=== PATIENT | female | born 1965 | race Caucasian/White ===

== ENCOUNTER → 2022-06-16 | Outpatient (CLI) | payer MEDICARE, SELFPAY ==
[2022-06-16 07:45] LABS: International Normalized Ratio 1.1; Prothrombin Time (Protime)PT. 13.4 SECONDS (11.7-14.9)
== END | disposition home or self-care (01) ==
PROVIDERS: PCP Family Medicine; Visit Provider Orthopaedic Surgery
DX: Z79.899 Other long term (current) drug therapy (principal); Z79.01 Long term (current) use of anticoagulants
CPT/HCPCS: 36415; 85610

== ENCOUNTER → 2022-12-07 | Outpatient (CLI) | payer MEDICARE, SELFPAY ==
[2022-12-10 09:29] LABS: Calprotectin, Stool 81 ug/g (0-120)
== END | disposition home or self-care (01) ==
LOC: LABSPEC 12:37
PROVIDERS: PCP Family Medicine; Referring Provider Internal Medicine; Visit Provider Internal Medicine
DX: K62.5 Hemorrhage of anus and rectum (principal); A04.72 Enterocolitis due to Clostridium difficile, not specified as recurrent; A09 Infectious gastroenteritis and colitis, unspecified
CPT/HCPCS: 36415; 83630; 83993; 87493

== ENCOUNTER → 2023-01-19 | Outpatient (CLI) | payer MEDICARE, SELFPAY ==
--- NOTE | 2023-01-19 12:06 | US_ITS ---
STUDY: RENAL ULTRASOUND - COMPLETE REASON FOR EXAM: Female, 57 years old. UTI TECHNIQUE: Ultrasound evaluation of the kidneys was performed with real-time and static pham-scale imaging. COMPARISON: None. FINDINGS: RIGHT KIDNEY: Normal location of the right kidney, which is normal in size. The right kidney measures 9.1 cm. . There is a normal cortex of the right kidney. There is no right renal mass or cyst. There are no right renal calculi. There is no right hydronephrosis. DISTAL RIGHT URETER: There is non-visualization of the distal right ureter. There is no demonstrated right ureterovesical junction calculus. There is a visualized right ureteral jet. LEFT KIDNEY: Normal location of the left kidney, which is normal in size. The left kidney measures 10.5 cm. . There is a normal cortex of the left kidney. There is no left renal mass or cyst. There are no left renal calculi. There is no left hydronephrosis. DISTAL LEFT URETER: There is non-visualization of the distal left ureter. There is no demonstrated left ureterovesical junction calculus. There is a visualized left ureteral jet. AORTA: There is obscuration of the abdominal aorta by overlying bowel gas I.V.C.: It is not visualized. There is too much overlying bowel gas. BLADDER: The distended urinary bladder has a volume in cc of 204. PVR: 58. There is a normal wall thickness of the distended urinary bladder. There is no demonstrated mass within the urinary bladder. There are no demonstrated bladder calculi. US/Kidney and Bladder IMPRESSION: No acute findings of the ultrasound of the kidneys and urinary bladder. Electronically Signed: Kevin Archibald MD at 21:53 EDT ,
[2023-01-26 20:08] LABS: Calprotectin, Stool 43 ug/g (0-120)
== END | disposition home or self-care (01) ==
PROVIDERS: Internal Medicine Gastroenterology; PCP Family Medicine; Referring Provider Urology; Visit Provider Urology
DX: N39.0 Urinary tract infection, site not specified (principal); K58.9 Irritable bowel syndrome, unspecified; A49.8 Other bacterial infections of unspecified site
CPT/HCPCS: 76770; 83630; 83993; 87493

== ENCOUNTER 2023-01-29 12:40 | Outpatient (CLI) | payer MEDICARE, SELFPAY ==
--- NOTE | 2023-01-29 13:23 | NURSING ---
awaiting med from pharmacy
[2023-01-29 13:36] VITALS: BP 106/61; PULSE 64; RESP 18; TEMP 36.9; O2SAT 97
[2023-01-29] MEDS: 0.9% NaCl Peripheral Flush Adult/Peds IV (13:51)
[2023-01-29 15:13] VITALS: BP 107/57; PULSE 62; RESP 18; TEMP 36.7; O2SAT 97
== END 2023-01-29 15:18 | disposition home or self-care (01) ==
LOC: MS3OUT 12:42 → MS3 13:05
PROVIDERS: PCP Family Medicine; Referring Provider Internal Medicine Gastroenterology; Visit Provider Internal Medicine Gastroenterology
DX: A49.8 Other bacterial infections of unspecified site (principal)
CPT/HCPCS: 96365; J7040; J7050; A4216; J0565

== ENCOUNTER → 2023-04-26 | Outpatient (CLI) | payer MEDICARE, SELFPAY ==
[2023-04-29 21:07] LABS: Pancreatic Elastase, Fecal < 50 (>200)
[2023-05-03 20:08] LABS: Calprotectin, Stool 27 ug/g (0-120); Fats, Neutral Normal (.); Fats, Total Increased (.)
== END | disposition home or self-care (01) ==
LOC: LABSPEC 09:56
PROVIDERS: PCP Family Medicine; Referring Provider Internal Medicine Gastroenterology; Visit Provider Internal Medicine Gastroenterology
DX: R19.7 Diarrhea, unspecified (principal); K58.9 Irritable bowel syndrome, unspecified; A49.8 Other bacterial infections of unspecified site; N39.0 Urinary tract infection, site not specified
CPT/HCPCS: 82653; 82705; 83630; 83993; 87177; 87209; 87329; 87493; 87506

== ENCOUNTER 2023-07-29 11:52 | Day surgery (SDC) | payer MEDICARE, SELFPAY ==
[2023-07-29] VITALS (11 sets, daily range): BP systolic 109–136; BP diastolic 54–78; PULSE 57–80; RESP 16–18; TEMP 36.3–37.6; O2SAT 95–99; BMI 30.4
[2023-07-29 12:19] LABS: INR Fingerstick 1.5; Prothrombin Time Fingerstick 17.1 SEC (11.7-14.9)
[2023-07-29] MEDS: Vancomycin IV 1,000 MG/200 ML BAG 200 MG IV (12:37)
[2023-07-29] MEDS: Lactated Ringers 1,000 ML 15 ML IV (12:37)
--- NOTE | 2023-07-29 13:11 | EX.PCM.DISCH ---
Discharge Instructions Diet Discharge Diet: No restrictions Activity Discharge Activity: May Not Shower May resume sexual activity in: 3 weeks Additional Activity Instructions:: No swimming, tub bathing, hot tubs, strenuous activity/exercise/sexual activity Dressing / Incision Call your doctor if your incision/area has: Continuous Slow Oozing, Sudden Increased Bleeding, Increased Pain/ Swelling, Foul Smelling Discharge and Swelling at the incision site Call your doctor if you observe: Fever of 101 or Higher, Inability to urinate and Inability to have a bowel movement Change Dressing in: do not change dressing Remove Dressing in: do not remove dressing Cleanse incision/area with: Keep Dressing Clean & Dry Follow Up Care Please Follow Up With: Audrey Bowens MD When: Next week, the office will call the patient to confirm Test Results: Test results from this visit will be discussed in further detail at your follow-up appointment, if applicable. Discharge Plan Admission Attending Provider: Adurey Boewns Primary Care Provider: Jesus Thompson Discharge Orders/Prescriptions Prescriptions: New doxycycline hyclate 100 mg tablet 100 mg PO BID Qty: 6 0RF oxycodone-acetaminophen [Percocet] 5-325 mg tablet 1 tab PO Q8H PRN (Reason: pain) 3 Days Qty: 9 0RF Continued albuterol sulfate 90 mcg/actuation aerosol powdr breath activated 2 inh inhalation Q6H PRN (Reason: shortness of breath) ammonium lactate 12 % cream 1 applic topical DAILY duloxetine 20 mg capsule,delayed release(DR/EC) 20 mg PO BID hydrocodone-acetaminophen 5-325 mg tablet 1 tab PO TID PRN (Reason: pain) lorazepam 1 mg tablet 1 mg PO DAILY PRN (Reason: anxiety) omeprazole 20 mg capsule,delayed release(DR/EC) 20 mg PO DAILY sertraline 100 mg tablet 150 mg PO DAILY trazodone 50 mg tablet 50 mg PO DAILY warfarin [Jantoven] 2 mg tablet See Rx Instructions PO DAILY Patient Comments: PT CLARIFYING WITH DR BOWENS AND PCP [facility] WHE TO STOP TAKING AND IF LOVENEX WILL BE NEEDED TO BRIDGE. Rx Instructions: 7 MG MWF, 8MG STHS orally daily; famotidine 20 mg tablet 20 mg PO BID PRN (Reason: GERD) 30 Days Qty: 60 2RF enoxaparin 60 mg/0.6 mL syringe 60 mg subcut Q12H Patient Comments: INJECT 0.6 ML UNDER THE SKIN TWICE A DAY colestipol 1 gram tablet 1 g PO BID Qty: 60 0RF Zenpep 40,000-126,000- 168,000 unit capsule,delayed release(DR/EC) See Rx Instructions PO .COMPLEX Qty: 320 11RF Rx Instructions: take 1-2 with snacks and 2-3 with meals. EPI K86.81 ondansetron HCl 4 mg tablet 4 mg PO TID PRN (Reason: nausea and vomiting) Qty: 30 3RF Referrals / Follow Up: Jesus Thompson, [Primary Care Provider] - Disposition Disposition (needs filled in before D/C Order can be placed): Home, Self Care
[2023-07-29] MEDS: DiphenhydrAMINE 50 MG/ML Syringe 25 MG IV (13:59)
--- NOTE | 2023-07-29 14:00 | NURSING ---
this RN walked into room to call button being rung for patient to go to bathroom and IV pump beeping. vancomycin infusion was complete and this RN unhooked IV and noticed patient to be red on head and neck and c/o itching. Suspected reaction to iv vancomycin, called ordering physician dr preston and got order for benadryl, anesthesia made aware as well. patient denies any sob, or swelling and is resting in bed comfortably. vitals rechecked.
--- NOTE | 2023-07-29 14:17 | PCM.OPRPT ---
Report of Operation Date of Procedure: 07/29/23 Pre-Operative Diagnosis: Urge incontinence, nocturia, frequency Post-Operative Diagnosis: Same Surgery/Procedure Performed:: Axonics stage I Surgeon: Audrey Nayak Type of Anesthesia: MAC Description of Procedure: The patient is a 58-year-old female who presents for an Axonics stage I trial. Informed consent has been obtained. The patient was taken to the operating room and placed in a prone position on the operating room table. Anesthesia monitored the head, neck, airway, IV access and vital signs throughout the case. Once anesthesia was appropriate ministered, the patient was prepped and draped in usual sterile fashion. Fluoroscopic evaluation was used to identify the S3 foramen which was then mapped out onto her skin. The area overlying the insertion site for the foramen was infiltrated with lidocaine. The needle was inserted through the S3 foramen is seen on fluoroscopic visualization. Good monse and toe flexion were achieved. At this time the guidewire was placed through the needle and the sheath was removed moved and knife was then used to make an incision surrounding the guidewire and the dilating sheath was then inserted. The lead was then inserted after this and once in good position on fluoroscopic evaluation it was evaluated. All 4 leads had good monse response as well as toe flexion. A pocket site was selected. The area was infiltrated with local lidocaine. An incision was made and cautery was used for hemostasis and pocket development. The lead was tunneled into position without difficulty. This was then connected to the lead extension which was tunneled in a contralateral fashion to the other side. No impedances were found on evaluation. The incisions were closed using 3-0 interrupted Vicryl followed by 4-0 Monocryl subcuticular suturing and skin glue. An OpSite was placed over a drain sponge and the battery followed by cloth tape. The patient was then awakened and taken to the recovery room in good condition. There were no complications during this procedure. Grafts/Implants Used: Axonics lead and lead extension Complications None Admit VTE Documentation VTE Present on Admission: Yes VTE Pharm Prophylaxis ordered?: Yes
--- NOTE | 2023-07-29 15:00 | RAD_ITS ---
STUDY: X-RAY - PELVIS REASON FOR EXAM: Female, 58 years old. axonics TECHNIQUE: One view of the pelvis was obtained. COMPARISON: None. FINDINGS: 16 seconds of fluoroscopy of the pelvis was utilized operating room during sacral stimulator placement and 2 images are cemented for interpretation.. RAD/Pelvis 1 or 2 Views IMPRESSION: Fluoroscopy during sacral stimulator placement. Electronically Signed: Raymon Hutchinson MD at 18:00 EST ,
== END 2023-07-29 16:59 | disposition home or self-care (01) ==
LOC: SDC 11:53 → AC 11:57
PROVIDERS: PCP Family Medicine; Referring Provider Urology; Visit Provider Urology
PROC: (CPT 64581; principal; 2023-07-29 13:20)
DX: N39.41 Urge incontinence (principal); J44.9 Chronic obstructive pulmonary disease, unspecified; I48.20 Chronic atrial fibrillation, unspecified; N32.81 Overactive bladder; I10 Essential (primary) hypertension; R35.0 Frequency of micturition; R35.1 Nocturia; E78.5 Hyperlipidemia, unspecified
CPT/HCPCS: 64581; 36416; 72170; 76000; 85610; J7120; J2405

== ENCOUNTER 2023-08-12 11:45 | Day surgery (SDC) | payer MEDICARE, SELFPAY ==
[2023-07-29 12:44] LABS: Anion Gap 6 (5-15); BUN 13 mg/dL (7-18); Calcium,Total 9.2 mg/dL (8.5-10.1); Chloride 109 mmol/L (98-107); Creatinine, Serum 0.86 mg/dL (0.55-1.02); EST Glomerular Filtration Rate 71 mL/min (>60); Est Glom Filt Rate - Afr Amer 86 mL/min (>60); Glucose 85 mg/dL (74-106); Hematocrit 38.5 % (37-47); Hemoglobin 12.9 g/dL (12.0-15.0); Mean Corp Hgb Conc 33.5 g/dL (32-36); Mean Corpuscular Hgb 31.9 pg (27.0-32.0); Mean Corpuscular Volume 95.3 fL (81-99); Mean Platelet Vol. 10.3 fl (6.2-12.0); Platelet Count 219 K/mm3 (150-450); Potassium 4.1 mmol/L (3.5-5.1); RBC Distribution Width CV 12.7 % (11.6-14.6); RBC Distribution Width SD 44.1 fl (35.1-43.9); Red Blood Count 4.04 M/mm3 (4.2-5.4); Sodium Level 141 mmol/L (136-145); White Blood Count 5.1 K/mm3 (4.4-11.0)
[2023-08-12] VITALS (9 sets, daily range): BP systolic 91–129; BP diastolic 40–69; PULSE 54–65; RESP 16–18; TEMP 36.1–37.6; O2SAT 95–100; BMI 30.7
[2023-08-12] MEDS: Lactated Ringers 1,000 ML 15 ML IV (12:22)
[2023-08-12] MEDS: Clindamycin 600 MG/50 ML BAG 100 MG IV (14:24)
--- NOTE | 2023-08-12 14:29 | DCINST_ITS ---
Discharge Instructions Diet Discharge Diet: No restrictions Activity Discharge Activity: May Shower (On Wednesday) May resume sexual activity in: 1 week Additional Activity Instructions:: No strenuous activity or exercise for the next few days Dressing / Incision Call your doctor if your incision/area has: Continuous Slow Oozing, Sudden Increased Bleeding, Increased Pain/ Swelling, Increased Redness, Foul Smelling Discharge and Swelling at the incision site Call your doctor if you observe: Fever of 101 or Higher, Inability to urinate and Inability to have a bowel movement Remove Dressing in: leave until fall off Cleanse incision/area with: Keep Dressing Clean & Dry Follow Up Care Please Follow Up With: Audrey Bowens MD When: The office will call the patient to make arrangements for follow-up. Test Results: Test results from this visit will be discussed in further detail at your follow- up appointment, if applicable. Discharge Plan Admission Attending Provider: Audrey Bowens Primary Care Provider: Jesus Thompson Discharge Orders/Prescriptions Prescriptions: New oxycodone-acetaminophen [Percocet] 5-325 mg tablet 1 tab PO Q8H PRN (Reason: pain) 3 Days Qty: 10 0RF doxycycline monohydrate 100 mg capsule 100 mg PO BID Qty: 6 0RF Continued albuterol sulfate 90 mcg/actuation aerosol powdr breath activated 2 inh inhalation Q6H PRN (Reason: shortness of breath) ammonium lactate 12 % cream 1 applic topical DAILY duloxetine 20 mg capsule,delayed release(DR/EC) 20 mg PO BID hydrocodone-acetaminophen 5-325 mg tablet 1 tab PO TID PRN (Reason: pain) lorazepam 1 mg tablet 1 mg PO DAILY PRN (Reason: anxiety) omeprazole 20 mg capsule,delayed release(DR/EC) 20 mg PO DAILY sertraline 100 mg tablet 150 mg PO DAILY trazodone 50 mg tablet 50 mg PO QHS warfarin [Jantoven] 2 mg tablet See Rx Instructions PO DAILY Hold Instructions: Ordered Patient Comments: PT CLARIFYING WITH DR BOWENS AND PCP [facility] WHE TO STOP TAKING AND IF LOVENEX WILL BE NEEDED TO BRIDGE. Rx Instructions: 7 MG MWF, 8MG STHS orally daily; famotidine 20 mg tablet 20 mg PO BID PRN (Reason: GERD) 30 Days Qty: 60 2RF enoxaparin 60 mg/0.6 mL syringe 60 mg subcut Q12H Patient Comments: INJECT 0.6 ML UNDER THE SKIN TWICE A DAY doxycycline hyclate 100 mg tablet 100 mg PO BID Qty: 6 0RF colestipol 1 gram tablet 1 g PO BID Qty: 60 0RF Zenpep 40,000-126,000- 168,000 unit capsule,delayed release(DR/EC) See Rx Instructions PO .COMPLEX Qty: 320 11RF Rx Instructions: take 1-2 with snacks and 2-3 with meals. EPI K86.81 ondansetron HCl 4 mg tablet 4 mg PO TID PRN (Reason: nausea and vomiting) Qty: 30 3RF Referrals / Follow Up: Jesus Thompson, [Primary Care Provider] - Disposition Disposition (needs filled in before D/C Order can be placed): Home, Self Care
[2023-08-12] MEDS: Lidocaine 1%/Epi 1:200 (30ml) 30 ML AMPUL (14:44)
--- NOTE | 2023-08-12 16:34 | PCM.OPRPT ---
Report of Operation Date of Procedure: 08/12/23 Pre-Operative Diagnosis: Urinary urgency Post-Operative Diagnosis: Same Surgery/Procedure Performed:: Axonics stage II Surgeon: Audrey Nayak Type of Anesthesia: MAC Description of Procedure: Patient is a 66-year-old female with a successful stage I Axonics lead implantation and now presents for an insertion of her battery. Informed consent was obtained. The patient was taken to the operating room and placed on the operating room table in a prone position. She was appropriately padded and secured to the table. Anesthesia monitored the head, neck, airway, IV access and vital signs throughout the case. Once anesthesia was appropriate ministered she was prepped and draped in usual sterile fashion. The area overlying the pocket site was carefully infiltrated laterally with local anesthetic. The incision was opened using the knife and hemostats with care being taken to avoid injury to the lead itself. At this time the lead extension was identified and brought into the operative field. Using the torque wrench, the lead was removed from the lead extension. The lead extension was then with the boot portion pulled from the operative field and the remainder being pulled from under the drapes. At this time the pocket site was carefully enlarged using Bovie cautery and blunt dissection. Hemostasis was obtained. The pocket site was irrigated with sterile water. At this time the lead was dried and inserted into the battery and secured using the torque wrench. The battery was then placed into the prepared pocket site. The pocket was closed in 2 layers with 3-0 interrupted Vicryl and 4-0 subcuticular Monocryl suturing. Skin glue was then applied. The patient was then awakened and taken to the recovery room in good condition. There were no complications during this procedure. Grafts/Implants Used: Axonics battery Complications None Admit VTE Documentation VTE Present on Admission: Yes VTE Mechan Device Prophylaxis: SCD's VTE Pharm Prophylaxis ordered?: Yes
== END 2023-08-12 16:47 | disposition home or self-care (01) ==
LOC: SDC 11:45 → AC 11:47
PROVIDERS: PCP Family Medicine; Referring Provider Urology; Visit Provider Urology
PROC: (CPT 64590; principal; 2023-08-12 13:05)
DX: R39.15 Urgency of urination (principal); J44.9 Chronic obstructive pulmonary disease, unspecified; I48.20 Chronic atrial fibrillation, unspecified; K21.9 Gastro-esophageal reflux disease without esophagitis; Z86.718 Personal history of other venous thrombosis and embolism; Z87.19 Personal history of other diseases of the digestive system; Z86.19 Personal history of other infectious and parasitic diseases; I10 Essential (primary) hypertension; Z86.73 Personal history of transient ischemic attack (TIA), and cerebral infarction without residual deficits; R35.1 Nocturia; Z79.01 Long term (current) use of anticoagulants
CPT/HCPCS: 64590; 00300; 80048; 85027; J7120; J2405

== ENCOUNTER → 2023-09-02 | Outpatient (CLI) | payer MEDICARE, SELFPAY | END | disposition home or self-care (01) | LOC: LABSPEC 09:46 | PROVIDERS: PCP Family Medicine; Referring Provider Family Medicine; Visit Provider Internal Medicine Gastroenterology | DX: A49.8 Other bacterial infections of unspecified site (principal) | CPT/HCPCS: 87493 ==

== ENCOUNTER → 2023-10-14 | Outpatient (CLI) | payer MEDICARE, SELFPAY ==
[2023-10-14 16:26] LABS: Absolute Lymphocyte Count 1.07 X10^3/uL (0.83-4.51); Absolute Neutrophil Count 2.7 X10^3/uL (2.0-7.7); Basophil# 0.02 X10^3/uL; Basophil% 0.5 % (0-1); Eosinophil# 0.06 X10^3/uL; Eosinophils% 1.4 % (0-5); Hematocrit 38.8 % (37-47); Hemoglobin 12.6 g/dL (12.0-15.0); Lymphocyte # 1.07 X10^3/ul (0.83-4.51); Lymphocyte % 25.4 % (19-41); Mean Corp Hgb Conc 32.5 g/dL (32-36); Mean Corpuscular Hgb 31.3 pg (27.0-32.0); Mean Corpuscular Volume 96.5 fL (81-99); Mean Platelet Vol. 10.5 fl (6.2-12.0); Monocyte# 0.36 X10^3/uL; Monocyte% 8.6 % (0-10); NRBC Flagged by Analyzer 0 % (0-5); Neutrophil % 64.1 % (47-70); Platelet Count 236 K/mm3 (150-450); RBC Distribution Width CV 12.7 % (11.6-14.6); RBC Distribution Width SD 45.2 fl (35.1-43.9); Red Blood Count 4.02 M/mm3 (4.2-5.4); White Blood Count 4.2 K/mm3 (4.4-11.0)
[2023-10-14 17:18] LABS: ALB/GLOB Ratio 1.2 RATIO (0.9-2.4); AST(SGOT) 22 U/L (15-37); Alanine Aminotransfer ALT/SGPT 27 U/L (13-56); Alkaline Phosphatase 97 U/L (45-117); Amylase 42 U/L (25-115); Anion Gap 5 (5-15); BUN 12 mg/dL (7-18); BUN/Creat Ratio 14.2 RATIO (10-20); Calcium,Total 9.6 mg/dL (8.5-10.1); Chloride 109 mmol/L (98-107); Creatinine, Serum 0.85 mg/dL (0.55-1.02); EST Glomerular Filtration Rate 73 mL/min (>60); Est Glom Filt Rate - Afr Amer 88 mL/min (>60); Globulin 3.4 g/dL (2.2-4.2); Glucose 85 mg/dL (74-106); LDH 186 U/L (84-246); Lipase 36 U/L (13-75); Magnesium 2.3 mg/dL (1.6-2.6); Phosphorus 2.6 mg/dL (2.5-4.9); Potassium 3.7 mmol/L (3.5-5.1); Protein, Total 7.4 g/dL (6.4-8.2); Sodium Level 139 mmol/L (136-145)
[2023-10-20 12:09] LABS: Anti-Centromere B Ab <0.2 AI (0.0-0.9); Anti-Chromatin <0.2 AI (0.0-0.9); Anti-Jo <0.2 AI (0.0-0.9); Anti-Scleroderma-70 AB <0.2 AI (0.0-0.9); Anti-dsDNA Ab <1 IU/mL (0-9); Beef <0.10 kU/L (Class 0); Chocolate <0.10 kU/L (Class 0); Codfish <0.10 kU/L (Class 0); Corn <0.10 kU/L (Class 0); Egg, Whole <0.10 kU/L (Class 0); Milk (Cow) <0.10 kU/L (Class 0); Mussels <0.10 kU/L (Class 0); Peanut <0.10 kU/L (Class 0); Pork <0.10 kU/L (Class 0); RNP Ab 0.2 AI (0.0-0.9); SJOGREN'S Anti-SS-A test < 0.2 AI (0.0-0.9); SJOGREN'S Anti-SS-B test < 0.2 AI (0.0-0.9); Salmon <0.10 kU/L (Class 0); Shrimp <0.10 kU/L (Class 0); Smith Ab <0.2 AI (0.0-0.9); Soybean <0.10 kU/L (Class 0); Tuna <0.10 kU/L (Class 0); Wheat <0.10 kU/L (Class 0)
[2023-10-21 01:07] LABS: ACCA 12 units (0-90); AMCA 18 units (0-100); Alpha-1-Globulins 0.2 g/dL (0.0-0.4); Alpha-2-Globulins 0.6 g/dL (0.4-1.0); Chromogranin A 41.3 ng/mL (0.0-101.8); Cytoplasmic Ab (C-ANCA) <1:20 titer (Neg:<1:20); Endomysial Antibody IgA Negative (Negative); Gamma Globulin 0.7 g/dL (0.4-1.8); Gastrin, Serum 28 pg/mL (0-115); IgG, Quant 828 mg/dL (586-1602); Immunoglobulin A 110 mg/dL (87-352); Immunoglobulin E 3 IU/mL (6-495); Immunoglobulin G, Subclass 1 480 mg/dL (248-810); Immunoglobulin G, Subclass 2 279 mg/dL (130-555); Immunoglobulin G, Subclass 3 8 mg/dL (15-102); Immunoglobulin G, Subclass 4 21 mg/dL (2-96); Immunoglobulin M 73 mg/dL (26-217); PROEL- TOTAL PROTEIN 6.7 g/dL (6.0-8.5); Perinuclear Ab (P-ANCA) <1:20 titer (Neg:<1:20); gASCA 30 units (0-50); t-Transglutaminase IgA <2 U/mL (0-3)
[2023-12-08 12:39] LABS: ALCA 6 units (0-60)
== END | disposition home or self-care (01) ==
LOC: LAB 14:05
PROVIDERS: PCP Family Medicine; Referring Provider Internal Medicine Gastroenterology; Visit Provider Internal Medicine Gastroenterology
DX: K58.9 Irritable bowel syndrome, unspecified (principal)
CPT/HCPCS: 36415; 80053; 82150; 82746; 82784; 82785; 82787; 82941; 83516; 83615; 83690; 83735; 84100; 84165; 85025; 86003; 86005; 86036; 86225; 86235; 86255; 86256; 86316; 86334; 86671

== ENCOUNTER → 2023-11-09 | Outpatient (CLI) | payer MEDICARE, SELFPAY ==
--- NOTE | 2023-11-09 08:07 | CT_ITS ---
STUDY: CT ABDOMEN AND PELVIS WITH CONTRAST REASON FOR EXAM: Female, 58 years old. ? IBS, pt has concern for tumor. History of prior gastric bypass surgery and colon resection due to diverticulitis. RADIATION DOSAGE (If Supplied By Facility): CTDIvol = ( 19.93 ) mGy, DLP = ( 962.51 ) mGycm TECHNIQUE: Transaxial images were obtained from the dome of the diaphragm to the symphysis pubis without oral contrast. Oral and amp; IV Readi-CAT and amp; 100mL Isovue-300 was administered. Sagittal and coronal images were reconstructed. Individualized dose optimization techniques were used for this CT. COMPARISON: None. FINDINGS: Mild degree of increased markings at the lung bases suggestive basilar atelectasis and/or mild scarring. The visualized portions of the heart are within normal limits. Normal liver. There are surgical clips in the gallbladder fossa consistent with a prior cholecystectomy. Normal spleen. Normal pancreas. Normal bilateral adrenal glands. Normal right kidney. Normal left kidney. The patient is status post subtotal gastrectomy for gastric bypass surgery. Normal small intestine. Normal colon. The appendix is visualized and appears normal. Normal abdominal aorta. Normal inferior vena cava. Surgical clips are seen in the left retroperitoneum. Normal urinary bladder. There is absence of the uterus consistent with a prior hysterectomy. Normal abdominal wall. Normal osseous structures. Spinal cord stimulator device is seen. CT/Abdomen/Pelvis WITH Contrast IMPRESSION: Status post subtotal gastrectomy with prior gastric bypass surgery. Status post cholecystectomy. No acute abnormality is seen. Electronically Signed: Joe Toledo MD at 12:30 EST ,
== END | disposition home or self-care (01) ==
LOC: CT 08:07
PROVIDERS: PCP Family Medicine; Referring Provider Internal Medicine Gastroenterology; Visit Provider Internal Medicine Gastroenterology
DX: K58.9 Irritable bowel syndrome, unspecified (principal)
CPT/HCPCS: 74177; Q9967; A4216

== ENCOUNTER 2024-03-09 05:15 | Day surgery (SDC) | payer MEDICARE, SELFPAY ==
[2024-03-09] VITALS (8 sets, daily range): BP systolic 89–117; BP diastolic 49–75; PULSE 63–74; RESP 16; TEMP 36.2–36.8; O2SAT 95–100; BMI 30.9
[2024-03-09] MEDS: Lactated Ringers 1,000 ML 15 ML IV (06:04)
--- NOTE | 2024-03-09 06:16 | PCM.PRE.AN2 ---
ASA Classification* ASA Classification ASA Classification: 3 Assessment & Plan Anesthesia* Anesthesia Assessment Anesthesia Assessment: Discussed sedation and/or anesthesia options, risks, benefits, and alternatives with patient/parents/legal guardian/POA. Questions invited. The patient/parents/legal guardian/POA seems to understand and agrees to proceed with anesthesia plan. Reviewed the physical assessment, medical history, allergy history and patient home medications list prior to surgery/procedure/anesthetic and documented any changes. Performed airway and anesthesia risk assessments. Procedural Plan Procedural Plan:: Proceed w/ Anesthesia plan Anesthesia Type Anesthesia Type: MAC History Source History Obtained from:: Patient and Chart Anesthesia Focused Assessment* Temperature: 98.2 F Pulse Rate: 74 Blood Pressure: 117/75 Respiratory Rate: 16 Pulse Ox: 97 Oxygen Delivery Method: Room Air Airway Assessment Mouth opens: >3 cm Mallampati Score: IV Teeth Condition: Intact Neck Range of motion (ROM): Full ROM Focused Labs Anesthesia Preop lab: CBC WBC 4.2 K/mm3 (4.4-11.0) L 10/14/23 14:09 RBC 4.02 M/mm3 (4.2-5.4) L 10/14/23 14:09 Hgb 12.6 g/dL (12.0-15.0) 10/14/23 14:09 Hct 38.8 % (37-47) 10/14/23 14:09 Plt Count 236 K/mm3 (150-450) 10/14/23 14:09 CHEMISTRY Potassium 3.7 mmol/L (3.5-5.1) 10/14/23 14:09 Sodium 139 mmol/L (136-145) 10/14/23 14:09 Magnesium 2.3 mg/dL (1.6-2.6) 10/14/23 14:09 Phosphorus 2.6 mg/dL (2.5-4.9) 10/14/23 14:09 BUN 12 mg/dL (7-18) 10/14/23 14:09 Creatinine 0.85 mg/dL (0.55-1.02) 10/14/23 14:09 Glucose 85 mg/dL (74-106) 10/14/23 14:09 COAG PT 13.4 SECONDS (11.7-14.9) 06/16/22 07:16 Pre-Assessment Diagnosis/Proposed Procedure Planned Operative Procedure(s): COLONOSCOPY Anesthesia History 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 When Was Last Pacemaker Check QUESTION #4 FULL TEXT: You/Your Family Experience fever (hyperthermia) with Anesthesia Last Oral Intake Last Oral intake: Last Oral Intake NPO since 02:00 03/09/24 05:56 Meds taken in AM with sips of water? Meds patient instructed to take am of surgery Any additional information?: Yes Meds patient instructed to take am of surgery: Prep completed at 2 AM PONV PONV - routing equipment tender: PONV - routing equipment tender Female Yes 03/06/24 11:21 HX of Motion Sickness No 03/06/24 11:21 HX of N/V After Surgery No 03/06/24 11:21 Non-Smoker Yes 03/06/24 11:21 Duration of Surgery greater No 03/06/24 11:21 than 60 minutes Number of Risk Factors 2 03/06/24 11:21 PONV Score Moderate Risk 03/06/24 11:21 Height & Weight Height & Weight: Anesthesia: Height & Weight Height 5 ft 03/09/24 05:56 Weight: 72 kg 03/09/24 05:56 Body Mass Index (BMI) 30.9 03/09/24 05:56 Respiratory Assessment Respiratory Assessment - routing equipment tender: Respiratory Tract Infection Hx - routing equipment tender Hx Respiratory Tract Infection No 03/06/24 11:21 STOP Sleep Apnea STOP Sleep Apnea - routing equipment tender: STOP Sleep Apnea - routing equipment tender Hx Hypertension No 03/06/24 11:21 Hx Sleep Apnea Yes: IMPLANT 03/06/24 11:21 CPAP No 03/06/24 11:21 BIPAP No 03/06/24 11:21 Do you snore loudly (louder than talking or can be heard Do you often feel tired/ fatigued/ sleepy during daytime? Has anyone observed you stop breathing during sleep? STOP Results Positive 03/06/24 11:21 QUESTION #5 FULL TEXT : Do you snore loudly (louder than talking or can be heard through closed doors)? 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 Specify any problems Hx of Preganancy in last 3 No 03/06/24 11:21 Months Nurse Filling Out Transfusion VCHRISTIN 03/06/24 11:21 & Questions: Date: 03/06/24 03/06/24 11:21 Time: 11:22 03/06/24 11:21 Patient unable to answer at this time (ie. confused, unrespo /Reproduction History /Reproductive History - routing equipment tender: /Reproductive Hx- routing equipment tender Hx Now Gestational Age (in weeks): EDC: Hx Hx Para Hx Section SAB Active Medications Active Medications: Current Medications Generic Name Dose Route Start Last Admin Trade Name Freq PRN Reason Stop Dose Admin Lactated Ringer's 1,000 mls @ 15 mls/hr 03/09/24 05:45 03/09/24 06:04 IV 15 mls/hr .Q48H AMAYA Administration PFSH Medical History Epilepsy Post-menopausal Wears glasses History of Clostridium difficile infection MRSA infection Ambulates with cane Bladder disease DVT (deep venous thrombosis) Gastric reflux History of diverticulitis Non-smoker Asthma COPD (chronic obstructive pulmonary disease) Shoulder joint pain RLS (restless legs syndrome) Reflex sympathetic dystrophy of lower limb Osteoarthritis Overactive bladder Mixed hyperlipidemia Migraine Diverticulosis of colon Abnormal weight gain Depression Anxiety Lower GI bleed Severe obesity Pre-diabetes Daytime sleepiness Moderate asthma without complication History of DVT (deep vein thrombosis) Esophagitis Chronic superficial gastritis without bleeding Fatty liver Diaphragmatic hernia Intestinal malabsorption Schatzki's ring Vitamin deficiency Pulmonary fibrosis Sleep apnea Consolidation of left lower lobe of lung Degenerative joint disease of both lower legs Stroke Loss of consciousness Dysphagia Home Medications ?Medication ?Instructions ?Recorded ?Last Taken ?Type albuterol sulfate 90 mcg/actuation 2 inh inhalation Q6H PRN shortness 12/10/22 Unknown History breath activated powder inhaler of breath ammonium lactate 12 % topical cream 1 applic topical DAILY 12/10/22 Unknown History lorazepam 1 mg tablet 1 mg PO DAILY PRN anxiety 12/10/22 Unknown History sertraline 100 mg tablet 150 mg PO DAILY 12/10/22 Unknown History trazodone 50 mg tablet 50 mg PO QHS 12/10/22 Unknown History warfarin 2 mg tablet ([facility]) See Rx Instructions PO DAILY 12/10/22 03/05/24 History aspirin 81 mg tablet,delayed 81 mg PO DAILY 03/02/24 03/05/24 History release (Adult Low Dose Aspirin) ondansetron HCl 4 mg tablet 4 mg PO TID PRN nausea and 03/02/24 Unknown Rx vomiting #30 tabs levetiracetam 500 mg tablet 500 mg PO BID 03/06/24 03/09/24 History Allergy/AdvReac Type Severity Reaction Status Date / Time adhesive tape Allergy Intermediate Rash Verified 03/09/24 05:54 latex Allergy Intermediate Rash Verified 03/09/24 05:54 Penicillins Allergy Intermediate Anaphylaxis Verified 03/09/24 05:54 Sulfa (Sulfonamide Allergy Intermediate Hives Verified 03/09/24 05:54 Antibiotics) vancomycin Allergy Intermediate Itching Verified 03/09/24 05:54 Family History Mother Anemia Anxiety Arthritis Lupus Bleeding disorder Breast cancer Diabetes TIA (transient ischemic attack) Father Diabetes Bleeding disorder Brother Heart disease Surgical History Hx of surgical procedure History of cardiac catheterization H/O sinus surgery S/P deep brain stimulator placement H/O total colectomy History of cholecystectomy History of gastric bypass H/O total hysterectomy History of bunionectomy of both great toes History of colon resection Social History Smoking Status: Never smoker alcohol intake: current substance use type: does not use Review of Systems (Anesthesia) ROS Narrative System reviewed and no additional complaints, except as documented.
--- NOTE | 2024-03-09 06:30 | COLBX_PTH ---
PATIENT: CARLOS MARTINEZ LOC: EN U#:[id number] AGE/SX: 58/F ROOM: RE03/09/[address]: Dr. Kingsley Guerra DO : 1965 BED: DIS: 03/09/2024 SPEC #: [id number] RECD: 03/09/24 09:27 STATUS: GIANCARLO MIRI #: [id number] JD: 03/09/24 06:[address]: Kingsley Guerra DEPT: SURGICAL PATHOLOGY RECD BY: Cinthya Vilchis ENTERED: 03/09/24 11:00 SP TYPE: COLON BX OTHR DR: Dr. Jesus Thompson DO Tissues: A - Ileum, NOS B - COLON BIOPSY Procedures: Surgery Specimen Level IV HEADER OPERATION: Colonoscopy, EGD PRE-OP DIAGNOSIS: Clostriodoides difficile infection, irritable bowel syndrome TISSUE SUBMITTED: A- Terminal ileum, B- Random colon biopsy MICROSCOPIC DIAGNOSIS A. Terminal ileum, biopsy: Chronic active enteritis. See microscopic description and comment. B. Colon, random biopsy: Fragments of colonic mucosa, no pathologic diagnosis. MARGIE/ 03/10/2024 COMMENT Correlation with clinical, endoscopic findings and appropriate follow up are necessary. MICROSCOPIC DESCRIPTION Slides are reviewed. A. This specimen shows fragments of small intestinal mucosa and submucosa with focal ulceration, acute and chronic inflammatory cell infiltrates in the lambda propria, lymphoid aggregates and cryptitis. Crypt abscess or granulomas are not seen. Moderate chronic inflammation also noted in the underlying submucosa. GROSS DESCRIPTION A. Received in fixative is one container labeled with the patient's name and designated Terminal ileum. The specimen consists of multiple irregular fragments of light pang soft tissue that in aggregate measure 2.0 x 0.5 x 0.1 cm. The specimen is totally submitted in one cassette. B. Received in fixative is one container labeled with the patient's name and designated Random colon biopsy. The specimen consists of multiple irregular fragments of light pang soft tissue that in aggregate measure 1.5 x 0.8 x 0.1 cm. The specimen is totally submitted in one cassette. MARGIE/ 03/09/2024 TC:2 CPT:31166y2
--- NOTE | 2024-03-09 06:44 | HP.PCM_ITS ---
History and Physical Date of Admission: 03/09/24 CARLOS MARTINEZ, is a 58 F who presents to the office today for follow up. Prior workup: Sigmoidectomy approximately 2002 to address complicated diverticulitis. Gastric bypass approximately 2019 Inspire implantation performed to address COPD and was placed on preventative ATB therapy at that time. She then developed urgent, loose and watery stools and was subsequently diagnosed with C.Diff. ? Biochemical 05.22.22 CMP WNL; UTI+ based on urine. ? Stool 05.25.22 O/P, giardia, elastase WNL. Calprotectin H192 ? CT abd/pel 06.08.22 wall thickening of transverse colon; postsurgical changes of gastric bypass; sigmoid anastomosis; colonic diverticulosis. ? Stool 06.26.22 C.Diff PCR + [facility] hospitalization 09.25.22- unknown discharge for rectal bleeding. ID did consult during hospitalization with start of difficid and changed to vancomycin taper for discharge. Noted pyuria during hospitalization which was felt to be r/t dehydration and not a UTI. ? Biochemical 09.26.22 UTI +. ? Stool 09.26.22 C.Diff PCR + ? CT abd/pel 09.26.22 small hiatal hernia; s/p gastric bypass; sigmoid resection; diverticulosis. ? Colonoscopy 09.28.22 advanced to cecum, tenacious stool lining colon. No abnormalities noted save diverticulosis. No vancomycin wash documented. PCP OV 10.19.22 as hospital f/u which notes continued C.Diff symptoms and difficulty with dysphagia. ? Stool 12.07.22 Lactoferrin, EP, calprotectin WNL. C.Diff A/B ag and PCR positive. PCP treated. Biochemical 12.07.22 IBD profile WNL *BGI established 12.10.22 with abdominal pain, diarrhea and nausea. Currently taking omeprazole. Additionally, reports internal (banded OSH) and external hemorrhoids with bleeding. Contact 01.05.23 regarding cholestyramine effectiveness; it has been very mildly effective. Reporting nausea at this time also. Recommend repeat CDI testing; stop cholestyramine, start colestipol and start Zofran BID. Urology Dr. Nayak OV 01.06.23 for recurrent UTI. Pursuing renal US, cystoscopy, supplement, will discuss vaginal estrogen cream at [place]. Will consider alternate therapy as opposed to antibiotics for recurrent UTI following workup. Bladder stimulator placed 08.12.23. GI Workup: ? Stool testing 01.19.23 calprotectin WNL. Lactoferrin +, c.difficile PCR, A/B antigen +. Contact 01.20.23 Start vancomycin 500mg Q6H for 4 weeks and zinplava infusion. OV 04.21.23 Reports symptoms are ongoing with similar symptoms; treatment did not changes symptoms at all. Dr. Nayak is looking at treating overactive bladder with possible implant; undergoing pelvic floor therapy at the moment. ? Stool calprotectin, lactoferrin, EP, O/P, giardia WNL? C.difficile PCR+, elastase L<50, fats increased Contact 05.12.23 with stool results; carrier of C.Diff will need preventative treatment in future if needing ATB therapy. Elastase is very low, could be result of SIBO/recent GI infection; Start pre/probiotic and PERT. ? Stool 09.02.23 C.Difficile PCR +, ag/toxin negative. Contact 10.05.23 with stool results; continues to have loose stools and abdominal pain. Start mesalamine. OV 10.14.23 she continues to have symptoms of loose stools with tenesmus with 6+/day and nausea. She is having back pain which she feels is related to GI symptoms. Contact 01.14.24 Pt continues to have daily diarrhea. Takes Imodium but is not very helpful. Also has daily nausea. Takes Zofran. Is just concerned about the diarrhea. OV pt reports continued symptoms from previous visit. Pt reports alternating diarrhea and constipation. Reports that Zofran is helpful for nausea. Pt reports that the colestipol has not been helpful. ROS Const Constitutional: Positive for fatigue, frequent falls, headache(s) and weakness; No fever(s) or weight change ENT ENT: Positive for headache(s) and difficulty swallowing Cardio Cardiology: Positive for leg pain with exertion Gastro GI: Positive for abdominal pain, bloating, change in bowel habits, constipation, diarrhea, heartburn, difficulty swallowing, excessive flatus, nausea/dyspepsia and vomiting; No belching, change in stool character, coffee ground emesis, cramping, feeling full early, incontinent of stools, Vomiting blood/hematemesis, Blood in stool, loose stools, Black,tarry stools, pain with swallowing or other Musc Musculoskeletal: Positive for abnormal gait, joint pain, back pain, muscle weakness, numbness, stiffness, tingling, Arthritis, restless legs, leg pain at night and leg pain with exertion Skin Skin: Positive for itchy eyes; No yellowing of the eye Neuro Neurology: Positive for abnormal gait, weakness, frequent falls, headache(s), numbness, tingling, restless legs and seizures Psych Psychiatric: No anxiety and No depression Endo Endocrine: Positive for fatigue; No weight change Aller/Imm Allergy/Immunologic: Positive for itchy eyes David/Lymp Hematologic/Lymphatic: Positive for easy bruising; No easy bleeding Exam Const General: cooperative and comfortable Nutritional Appearance: average body habitus and well nourished [facility] Head: normal to inspection Ears: hearing grossly normal bilaterally Nose: external nose normal Face and sinus: normal facial exam Mouth: oral mucosae normal Throat: posterior oropharynx normal Eyes General: appearance normal, both eyes and all related structures Neck Neck: normal visual inspection Chest Chest palpation & inspection: normal inspection of the chest and normal palpation of entire chest wall Resp Effort & Inspection: normal respiratory effort Auscultation: Bilateral: Clear to Auscultation Cardio Palpation: normal PMI Rate: regular rate Rhythm: regular rhythm GI Inspection: normal to inspection Auscultation: normal bowel sounds Percussion: normal to percussion Palpation: no hepatosplenomegaly Skin General: no rashes or lesions noted Neuro General: patient alert Extrem General: normal to inspection Psych Affect: normal affect Assessment and Plan Assessment and Plan (1) Clostridioides difficile infection: Status: Resolved Plan: Severe C. difficile colitis refractory to 3 rounds of vancomycin +2 rounds of Fidoxamyocin. We will put her on cholestyramine therapy. Her latest stool sample was negative for C. difficile antigen and C. difficile toxin. 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 She is becoming very depressed. She is already on Cymbalta twice a day, trazodone at night and sertraline 150 mg a day. I am not sure she sees a counselor. She thinks that this is causing her to be fatigued, weak and lose weight. I think these a lot of the symptoms of depression. I put her on Xifaxan 550 mg 3 times a day for postinfectious diarrhea. It did not help her diarrhea. I also give her low-dose benzodiazepine Once a day.That helped her diarrhea a little. But it did not make a big difference. She has no signs or symptoms of diabetes so we will put her on low-dose steroids to help stimulate her appetite. . On the chance that she does have a metabolic induced secretory diarrhea we will perform metabolic workup. I reviewed her colonoscopy that she had back in September 2022. There were no biopsies done and it was no evaluation of her small bowel. We will repeat her colonoscopy and also get an IBD SGI. Depending on what we find we would likely need a CT enterography. (3) Exocrine pancreatic insufficiency: Status: Acute Plan: We checked a fecal elastase and it was less than 50. I think she may have secondary exocrine pancreatic insufficiency because she does not have celiac disease, diabetes, chronic pancreatitis and this all developed after she had multiple episodes of C. difficile. We will get a CT enterography and possibly capsule endoscopy to evaluate her small bowel. Orders: Orders Calprotectin, Stool Today K58.9 - Irritable bowel syndrome without diarrhea CBC W/Diff, Automated Today K58.9 - Irritable bowel syndrome without diarrhea Comprehensive Metabolic Profil Today K58.9 - Irritable bowel syndrome without diarrhea CRP Today K58.9 - Irritable bowel syndrome without diarrhea Erythrocyte Sed Rate Today K58.9 - Irritable bowel syndrome without diarrhea LDH Today K58.9 - Irritable bowel syndrome without diarrhea Stool Lactoferrin/WBC Today K58.9 - Irritable bowel syndrome without diarrhea IBD Expanded Profile Today K58.9 - Irritable bowel syndrome without diarrhea Quantiferon TB-Gold+ Today K58.9 - Irritable bowel syndrome without diarrhea Abdomen/Pelvis WITH Contrast Today K58.9 - Irritable bowel syndrome without diarrhea Medications: Refilled ondansetron HCl 4 mg PO TID PRN 30 tabs 3RF nausea and vomiting I have examined the patient and the H&P has been reviewed. There are no clinical changes since date of exam.
--- NOTE | 2024-03-09 07:13 | PCM.POST.ANE ---
Anesthesia: Postop Eval I Current Vital Signs Temperature: 97.8 F Pulse Rate: 71 Blood Pressure: 90/49 Respiratory Rate: 16 Pulse Ox: 99 Oxygen Delivery Method: Room Air Assessment Airway patent: Yes Spontaneous unlabored respirations: Yes Mental status: Awake and Calm nausea: No Vomiting: No Anesthesia Complication: No Fluid Hydration Crystalloid volume administer (ml): 700 Total IV fluid infused: 700 Progress Note Anesthesia document: Postop Eval 1 completed: Yes
--- NOTE | 2024-03-09 07:18 | OP.CCLET_ITS ---
03/09/2024 Jesus Thompson Re : Colonoscopy procedure for Kathi Naqvi Dear Jay This procedure was performed on February. My impressions and recommendations are as follows: Impressions : - Preparation of the colon was fair. - Diverticulosis in the recto-sigmoid colon and in the sigmoid colon. - Congested mucosa in the recto-sigmoid colon, in the sigmoid colon, in the descending colon, at the hepatic flexure and in the ascending colon. Biopsied. - Multiple ulcers in the distal ileum and in the terminal ileum. Biopsied. - Stool in the recto-sigmoid colon and in the sigmoid colon. Recommendations : - Discharge patient to home. - Resume previous diet. - Continue present medications. - Await pathology results. - Repeat colonoscopy in 1 year for surveillance. My findings are described in the full procedure note, which is enclosed. If I can be of further assistance, please feel free to contact me at . Sincerely, Kingsley Guerra DO 03/09/2024 7:17:00 AM This report has been signed electronically.
--- NOTE | 2024-03-09 07:18 | OP.COLON_ITS ---
Patient Name: Kathi Naqvi Procedure Date: 03/09/2024 6:19 AM Date of : 1965 Age: 58 Procedure: Colonoscopy Indications: Chronic diarrhea Providers: Kingsley Guerra DO Referring MD: Jesus Thompson Medicines: Monitored Anesthesia Care Patient Profile: This is a 58 year old female. Refer to note in patient chart for documentation of history and physical. Last Colonoscopy: date unknown. Unable to locate last colonoscopy report. Complications: No immediate complications. Procedure: Pre-Anesthesia Assessment: - Prior to the procedure, a History and Physical was performed, and patient medications and allergies were reviewed. The patient is competent. The risks and benefits of the procedure and the sedation options and risks were discussed with the patient. All questions were answered and informed consent was obtained. Patient identification and proposed procedure were verified by the physician in the pre-procedure area. Mental Status Examination: alert and oriented. Airway Examination: normal oropharyngeal airway and neck mobility. Respiratory Examination: clear to auscultation. CV Examination: normal. Prophylactic Antibiotics: The patient does not require prophylactic antibiotics. Prior Anticoagulants: The patient has taken no anticoagulant or antiplatelet agents. ASA Grade Assessment: III - A patient with severe systemic disease. After reviewing the risks and benefits, the patient was deemed in satisfactory condition to undergo the procedure. The anesthesia plan was to use monitored anesthesia care (MAC). Immediately prior to administration of medications, the patient was re-assessed for adequacy to receive sedatives. The heart rate, respiratory rate, oxygen saturations, blood pressure, adequacy of pulmonary ventilation, and response to care were monitored throughout the procedure. The physical status of the patient was re-assessed after the procedure. After I obtained informed consent, the scope was passed under direct vision. Throughout the procedure, the patient's blood pressure, pulse, and oxygen saturations were monitored continuously. The Colonoscope was introduced through the anus and advanced to the terminal ileum. The colonoscopy was performed without difficulty. The patient tolerated the procedure well. The quality of the bowel preparation was fair. The terminal ileum, ileocecal valve, appendiceal orifice, and rectum were photographed. Scope In: 6:49:00 AM Scope Withdrawal Time 0 hours 0 minutes 1 second Scope Out: 7:03:55 AM Total Procedure Duration Time 0 hours 14 minutes 55 seconds Findings: The perianal and digital rectal examinations were normal. Multiple small and large-mouthed diverticula were found in the recto-sigmoid colon and sigmoid colon. An area of mildly congested mucosa was found in the recto-sigmoid colon, in the sigmoid colon, in the descending colon, at the hepatic flexure and in the ascending colon. Biopsies were taken with a cold forceps for histology. Verification of patient identification for the specimen was done. Estimated blood loss was minimal. The distal ileum and terminal ileum contained multiple three mm ulcers. No bleeding was present. No stigmata of recent bleeding were seen. Biopsies were taken with a cold forceps for histology. Verification of patient identification for the specimen was done. Estimated blood loss was minimal. Stool was found in the recto-sigmoid colon and in the sigmoid colon. Impression: - Preparation of the colon was fair. - Diverticulosis in the recto-sigmoid colon and in the sigmoid colon. - Congested mucosa in the recto-sigmoid colon, in the sigmoid colon, in the descending colon, at the hepatic flexure and in the ascending colon. Biopsied. - Multiple ulcers in the distal ileum and in the terminal ileum. Biopsied. - Stool in the recto-sigmoid colon and in the sigmoid colon. Recommendation: - Discharge patient to home. - Resume previous diet. - Continue present medications. - Await pathology results. - Repeat colonoscopy in 1 year for surveillance. Procedure Code(s): --- Professional --- 91785, Colonoscopy, flexible; with biopsy, single or multiple CPT copyright 2021 [employer]. All rights reserved. The codes documented in this report are preliminary and upon executive personal assistant review may be revised to meet current compliance requirements. Kingsley Guerra DO 03/09/2024 7:17:00 AM This report has been signed electronically. Number of Addenda: 0 Note Initiated On: 03/09/2024 6:19 AM
--- NOTE | 2024-03-09 07:24 | PCM.PRE.AN2 ---
ASA Classification* ASA Classification ASA Classification: 2 Assessment & Plan Anesthesia* Anesthesia Assessment Anesthesia Assessment: Discussed sedation and/or anesthesia options, risks, benefits, and alternatives with patient/parents/legal guardian/POA. Questions invited. The patient/parents/legal guardian/POA seems to understand and agrees to proceed with anesthesia plan. Reviewed the physical assessment, medical history, allergy history and patient home medications list prior to surgery/procedure/anesthetic and documented any changes. Performed airway and anesthesia risk assessments. Procedural Plan Procedural Plan:: Proceed w/ Anesthesia plan Anesthesia Type Anesthesia Type: MAC (see written pre anesthesia record for full assessment) Anesthesia Focused Assessment* Temperature: 97.8 F Pulse Rate: 72 Blood Pressure: 94/49 Respiratory Rate: 16 Pulse Ox: 99 Airway Assessment Mouth opens: >3 cm Mallampati Score: III Focused Labs Anesthesia Preop lab: CBC WBC 4.2 K/mm3 (4.4-11.0) L 10/14/23 14:09 RBC 4.02 M/mm3 (4.2-5.4) L 10/14/23 14:09 Hgb 12.6 g/dL (12.0-15.0) 10/14/23 14:09 Hct 38.8 % (37-47) 10/14/23 14:09 Plt Count 236 K/mm3 (150-450) 10/14/23 14:09 CHEMISTRY Potassium 3.7 mmol/L (3.5-5.1) 10/14/23 14:09 Sodium 139 mmol/L (136-145) 10/14/23 14:09 Magnesium 2.3 mg/dL (1.6-2.6) 10/14/23 14:09 Phosphorus 2.6 mg/dL (2.5-4.9) 10/14/23 14:09 BUN 12 mg/dL (7-18) 10/14/23 14:09 Creatinine 0.85 mg/dL (0.55-1.02) 10/14/23 14:09 Glucose 85 mg/dL (74-106) 10/14/23 14:09 COAG PT 13.4 SECONDS (11.7-14.9) 06/16/22 07:16 Pre-Assessment Diagnosis/Proposed Procedure Planned Operative Procedure(s): COLONOSCOPY Anesthesia History Anesthesia History - environmental change analyst: Anesthesia History - environmental change analyst Hx Hospitalization No 03/06/24 11:21 Any Problems With Anesthesia No 03/06/24 11:21 Cholinesterase deficiency No 03/06/24 11:21 You/Your Family Experience No 03/06/24 11:21 fever (hyperthermia) with Relationship Recent Exposure to Contagious No 03/09/24 05:56 Disease Does patient have nerve Yes: SPINAL CORD STIMULATOR- 03/06/24 11:21 stimulator INSTRUCTED TO TURN OFF FOR PROCEDURE Patient instructed to have device shut off --Does patient have Pacemaker No 03/09/24 05:56 or ICD? When Was Last Pacemaker Check QUESTION #4 FULL TEXT: You/Your Family Experience fever (hyperthermia) with Anesthesia Last Oral Intake Last Oral intake: Last Oral Intake NPO since 02:00 03/09/24 05:56 Meds taken in AM with sips of water? Meds patient instructed to Prep completed at 2 AM 03/09/24 06:25 take am of surgery PONV PONV - environmental change analyst: PONV - environmental change analyst Female Yes 03/06/24 11:21 HX of Motion Sickness No 03/06/24 11:21 HX of N/V After Surgery No 03/06/24 11:21 Non-Smoker Yes 03/06/24 11:21 Duration of Surgery greater No 03/06/24 11:21 than 60 minutes Number of Risk Factors 2 03/06/24 11:21 PONV Score Moderate Risk 03/06/24 11:21 Height & Weight Height & Weight: Anesthesia: Height & Weight Height 5 ft 03/09/24 05:56 Weight: 72 kg 03/09/24 05:56 Body Mass Index (BMI) 30.9 03/09/24 05:56 Respiratory Assessment Respiratory Assessment - environmental change analyst: Respiratory Tract Infection Hx - environmental change analyst Hx Respiratory Tract Infection No 03/06/24 11:21 STOP Sleep Apnea STOP Sleep Apnea - environmental change analyst: STOP Sleep Apnea - environmental change analyst Hx Hypertension No 03/06/24 11:21 Hx Sleep Apnea Yes: IMPLANT 03/06/24 11:21 CPAP No 03/09/24 07:10 BIPAP No 03/06/24 11:21 Do you snore loudly (louder than talking or can be heard Do you often feel tired/ fatigued/ sleepy during daytime? Has anyone observed you stop breathing during sleep? STOP Results Positive 03/09/24 07:10 QUESTION #5 FULL TEXT : Do you snore loudly (louder than talking or can be heard through closed doors)? Tobacco Use History Tobacco Use History - environmental change analyst: Tobacco Use History - environmental change analyst Tobacco Use Smoking Status Never smoker 03/06/24 11:21 Hx Tobacco Use No 03/06/24 11:21 Years Smoking Packs Smoked per Day Smoking Cessation Date was within the last 15 years Hx Smoking Cessation Date Hx Smoking Cessation Counseling Hematologic Medial History Hematologic Hx - environmental change analyst: Hematologic Medical Hx - improvement specialist Hx of Blood Transfusion No 03/06/24 11:21 Hx of Transfusion in last 3 No 03/06/24 11:21 Months Date of Last Transfusion (if within last 3 months) Ever experience any problems No 03/06/24 11:21 with transfusion(s)? Specify any problems Hx of Preganancy in last 3 No 03/06/24 11:21 Months Nurse Filling Out Transfusion VCHRISTIN 03/06/24 11:21 & Questions: Date: 03/06/24 03/06/24 11:21 Time: 11:22 03/06/24 11:21 Patient unable to answer at this time (ie. confused, unrespo /Reproduction History /Reproductive History - environmental change analyst: /Reproductive Hx- environmental change analyst Hx Now Gestational Age (in weeks): EDC: Hx Hx Para Hx Section SAB Active Medications Active Medications: Current Medications Generic Name Dose Route Start Last Admin Trade Name Freq PRN Reason Stop Dose Admin Lactated Ringer's 1,000 mls @ 15 mls/hr 03/09/24 05:45 03/09/24 07:22 IV Infused .Q48H AMAYA Infusion PFSH Medical History Epilepsy Post-menopausal Wears glasses History of Clostridium difficile infection MRSA infection Ambulates with cane Bladder disease DVT (deep venous thrombosis) Gastric reflux History of diverticulitis Non-smoker Asthma COPD (chronic obstructive pulmonary disease) Shoulder joint pain RLS (restless legs syndrome) Reflex sympathetic dystrophy of lower limb Osteoarthritis Overactive bladder Mixed hyperlipidemia Migraine Diverticulosis of colon Abnormal weight gain Depression Anxiety Lower GI bleed Severe obesity Pre-diabetes Daytime sleepiness Moderate asthma without complication History of DVT (deep vein thrombosis) Esophagitis Chronic superficial gastritis without bleeding Fatty liver Diaphragmatic hernia Intestinal malabsorption Schatzki's ring Vitamin deficiency Pulmonary fibrosis Sleep apnea Consolidation of left lower lobe of lung Degenerative joint disease of both lower legs Stroke Loss of consciousness Dysphagia Home Medications ?Medication ?Instructions ?Recorded ?Last Taken ?Type albuterol sulfate 90 mcg/actuation 2 inh inhalation Q6H PRN shortness 12/10/22 Unknown History breath activated powder inhaler of breath ammonium lactate 12 % topical cream 1 applic topical DAILY 12/10/22 Unknown History lorazepam 1 mg tablet 1 mg PO DAILY PRN anxiety 12/10/22 Unknown History sertraline 100 mg tablet 150 mg PO DAILY 12/10/22 Unknown History trazodone 50 mg tablet 50 mg PO QHS 12/10/22 Unknown History warfarin 2 mg tablet ([facility] See Rx Instructions PO DAILY 12/10/22 03/05/24 History aspirin 81 mg tablet,delayed 81 mg PO DAILY 03/02/24 03/05/24 History release (Adult Low Dose Aspirin) ondansetron HCl 4 mg tablet 4 mg PO TID PRN nausea and 03/02/24 Unknown Rx vomiting #30 tabs levetiracetam 500 mg tablet 500 mg PO BID 03/06/24 03/09/24 History Allergy/AdvReac Type Severity Reaction Status Date / Time adhesive tape Allergy Intermediate Rash Verified 03/09/24 05:54 latex Allergy Intermediate Rash Verified 03/09/24 05:54 Penicillins Allergy Intermediate Anaphylaxis Verified 03/09/24 05:54 Sulfa (Sulfonamide Allergy Intermediate Hives Verified 03/09/24 05:54 Antibiotics) vancomycin Allergy Intermediate Itching Verified 03/09/24 05:54 Family History Mother Anemia Anxiety Arthritis Lupus Bleeding disorder Breast cancer Diabetes TIA (transient ischemic attack) Father Diabetes Bleeding disorder Brother Heart disease Surgical History Hx of surgical procedure History of cardiac catheterization H/O sinus surgery S/P deep brain stimulator placement H/O total colectomy History of cholecystectomy History of gastric bypass H/O total hysterectomy History of bunionectomy of both great toes History of colon resection Social History Smoking Status: Never smoker alcohol intake: current substance use type: does not use Review of Systems (Anesthesia) ROS Narrative System reviewed and no additional complaints, except as documented.
--- NOTE | 2024-03-09 07:42 | PCM.POSTANE2 ---
Anesthesia Postop Eval I Sum Postop Eval Completion status Anesthesia document: Postop Eval 1 completed: Yes Anesthesia Postop Eval I Summary Anesthesia Postop Eval I Summary: Anesthesia Postop Eval I: Assessment Summary Airway patent Yes 03/09/24 07:15 Spontaneous unlabored Yes 03/09/24 07:15 respirations Mental status Awake,Calm 03/09/24 07:15 nausea No 03/09/24 07:15 Vomiting No 03/09/24 07:15 Anesthesia Postop Eval I: Fluid Summary Crystalloid volume administer 700 03/09/24 07:15 (ml) Colloids volume administered ( ml) Blood Product volume administered (ml) Total IV fluid infused 700 03/09/24 07:15 Anesthesia Postop Eval I: Summary Notes Anesthesia Complication No 03/09/24 07:15 Anesthesia Complication Comment: Post-operative progress note Anesthesia: Postop Eval II Evaluation Mental status: Awake Pain Level: 0 nausea: No Vomiting: No Complications Anesthesia Complication: No
== END 2024-03-09 07:40 | disposition home or self-care (01) ==
LOC: EN 05:16 → AC 05:17
PROVIDERS: PCP Family Medicine; Referring Provider Family Medicine; Visit Provider Internal Medicine Gastroenterology
PROC: 0DJD8ZZ Inspection of Lower Intestinal Tract, Via Natural or Artificial Opening Endoscopic (ICD-10-PCS; CPT 45378; principal; 2024-03-09 06:25)
DX: A04.72 Enterocolitis due to Clostridium difficile, not specified as recurrent (principal); J44.9 Chronic obstructive pulmonary disease, unspecified; K57.30 Diverticulosis of large intestine without perforation or abscess without bleeding; K86.81 Exocrine pancreatic insufficiency; K63.89 Other specified diseases of intestine; K63.3 Ulcer of intestine; K52.9 Noninfective gastroenteritis and colitis, unspecified
CPT/HCPCS: 45380; 88305; J7120; J2405

== ENCOUNTER → 2024-03-14 | Outpatient (CLI) | payer MEDICARE, SELFPAY ==
[2024-03-14 10:08] LABS: Erythrocyte Sedimentation Rate 5 mm/hr (0-30)
[2024-03-14 10:12] LABS: Absolute Lymphocyte Count 1.11 X10^3/uL (0.83-4.51); Absolute Neutrophil Count 2.5 X10^3/uL (2.0-7.7); Basophil# 0.03 X10^3/uL; Basophil% 0.7 % (0-1); Eosinophil# 0.06 X10^3/uL; Eosinophils% 1.5 % (0-5); Hematocrit 36.1 % (37-47); Hemoglobin 11.6 g/dL (12.0-15.0); Lymphocyte # 1.11 X10^3/ul (0.83-4.51); Lymphocyte % 27.1 % (19-41); Mean Corp Hgb Conc 32.1 g/dL (32-36); Mean Corpuscular Hgb 30.3 pg (27.0-32.0); Mean Corpuscular Volume 94.3 fL (81-99); Mean Platelet Vol. 9.8 fl (6.2-12.0); Monocyte# 0.35 X10^3/uL; Monocyte% 8.5 % (0-10); NRBC Flagged by Analyzer 0 % (0-5); Neutrophil # 2.54 X10^3/uL (2.7-7.7); Platelet Count 253 K/mm3 (150-450); RBC Distribution Width CV 12.6 % (11.6-14.6); RBC Distribution Width SD 43.2 fl (35.1-43.9); Red Blood Count 3.83 M/mm3 (4.2-5.4); White Blood Count 4.1 K/mm3 (4.4-11.0)
[2024-03-14 11:02] LABS: AST(SGOT) 26 U/L (15-37); Alanine Aminotransfer ALT/SGPT 39 U/L (13-56); Albumin, Serum 3.6 g/dL (3.2-5.0); Alkaline Phosphatase 138 U/L (45-117); Anion Gap 5 (5-15); BUN 12 mg/dL (7-18); BUN/Creat Ratio 14.4 RATIO (10-20); Calcium,Total 9.7 mg/dL (8.5-10.1); Chloride 110 mmol/L (98-107); Creatinine, Serum 0.83 mg/dL (0.55-1.02); EST Glomerular Filtration Rate 74 mL/min (>60); Est Glom Filt Rate - Afr Amer 90 mL/min (>60); Globulin 3.7 g/dL (2.2-4.2); Glucose 89 mg/dL (74-106); LDH 207 U/L (84-246); Potassium 4.4 mmol/L (3.5-5.1); Protein, Total 7.3 g/dL (6.4-8.2); Sodium Level 142 mmol/L (136-145)
[2024-03-20 13:07] LABS: ACCA 11 units (0-90); ALCA 4 units (0-60); AMCA 56 units (0-100); QNTFERON TB Mitogen Value > 10.00 IU/mL (.); QNTFERON TB Nil Value 0.01 IU/mL (.); QNTFERON TB1+ Ag Value 0.02 IU/mL (.); QNTFERON TB2+ Ag Value 0.03 IU/mL (.); QNTIFERON TB Positive Criteria Negative (Negative); gASCA 20 units (0-50)
== END | disposition home or self-care (01) ==
LOC: LAB 09:26
PROVIDERS: PCP Family Medicine; Referring Provider Internal Medicine Gastroenterology; Visit Provider Internal Medicine Gastroenterology
DX: K58.9 Irritable bowel syndrome, unspecified (principal)
CPT/HCPCS: 36415; 80053; 83516; 83615; 85025; 85652; 86036; 86140; 86480; 86671

== ENCOUNTER → 2024-03-24 | Outpatient (CLI) | payer MEDICARE, SELFPAY ==
--- NOTE | 2024-03-24 12:13 | CT_ITS ---
STUDY: CT ABDOMEN AND PELVIS WITH CONTRAST. Enterography. REASON FOR EXAM: Female, 58 years old. IBS -- enterography - IV and Oral contrast RADIATION DOSAGE (If Supplied By Facility): CTDIvol = ( 13.36 ) mGy, DLP = ( 1003.44 ) mGycm TECHNIQUE: Transaxial images were obtained from the dome of the diaphragm to the symphysis pubis without oral contrast. IV 100mL Isovue-370 was administered. Sagittal and coronal images were reconstructed. Individualized dose optimization techniques were used for this CT. COMPARISON: Comparison is made with prior study dated November 09, 2023. FINDINGS: The visualized lung bases are unremarkable. The visualized portions of the heart are within normal limits. There is decreased attenuation of the liver consistent with steatosis. There are surgical clips in the gallbladder fossa consistent with a prior cholecystectomy. Normal spleen. Normal pancreas. Normal bilateral adrenal glands. Normal right kidney. Normal left kidney. Moderate-sized hiatal hernia. The patient is status post subtotal gastrectomy for gastric bypass surgery. Normal small intestine. Surgical anastomosis is seen in the sigmoid colon. There is non-visualization of the appendix. Normal abdominal aorta. Normal inferior vena cava. Surgical clips are seen in the left retroperitoneum. Mild degree of diffuse bladder wall thickening. There is absence of the uterus consistent with a prior hysterectomy. Normal abdominal wall. Normal osseous structures. Spinal cord stimulator device is seen. CT/Abdomen/Pelvis WITH Contrast IMPRESSION: Stable examination. No acute abnormality is seen. Electronically Signed: Joe Toledo MD at 14:52 EDT ,
[2024-03-31 19:07] LABS: Calprotectin, Stool 37 ug/g (0-120)
== END | disposition home or self-care (01) ==
PROVIDERS: PCP Family Medicine; Referring Provider Internal Medicine Gastroenterology; Visit Provider Internal Medicine Gastroenterology
DX: K58.9 Irritable bowel syndrome, unspecified (principal)
CPT/HCPCS: 74177; 83630; 83993; Q9967